=== PATIENT | male | born 1980 | race Caucasian/White ===

== ENCOUNTER 2017-04-07 16:19 | Emergency (ER) | payer BC ==
[2017-04-07] MEDS ORDERED: Lidocaine 2% Viscous Solution 15 ML Cup PO ONE (17:27)
[2017-04-07] MEDS ORDERED: cefTRIAXone 1 GM, Lidocaine 1% 2.1 ML IM ONE ×2 (17:27)
--- NOTE | 2017-04-07 18:17 | EDM.PDOC ---
Scribed by Chela Kimbrough 04/07/17 9595 for Donovan Herrera MD ED HPI GENERAL MEDICAL PROBLEM - General Chief Complaint: ENT Problem Stated Complaint: UNABLE TO SWALLOW, [id number] Time Seen by Provider: 04/07/17 16:40 Source of Information: Reports: Patient, RN, RN Notes Reviewed History Limitations: Reports: No Limitations - History of Present Illness INITIAL COMMENTS - FREE TEXT/NARRATIVE: Patient presents to ER with complaint of sore throat with fever and chills for 2 days. Admits to mild frontal headache and nausea. Denies cough, vomiting or rash. Location: Reports: Other (throat) Quality: Reports: Ache Severity: Severe Improves with: Reports: None Worsens with: Reports: None Associated Symptoms: Reports: No Other Symptoms Throat Pain Score (Numeric/FACES): 10 - Related Data Allergies Allergy/AdvReac Type Severity Reaction Status Date / Time No Known Allergies Allergy Verified 04/07/17 16:46 Home Meds: Home Meds . [No Known Home Meds] 04/07/17 [History] ED ROS ENT - Review of Systems Review Of Systems: ROS reveals no pertinent complaints other than HPI. ED EXAM, ENT - Physical Exam Exam: See Below Exam Limited By: No Limitations General Appearance: Alert, WD/WN, No Apparent Distress Eye Exam: Bilateral Eye: Normal Inspection Ears: Normal External Exam, Normal Canal, Hearing Grossly Normal, Normal TMs Nose: Normal Inspection, Normal Mucousa, No Blood Mouth/Throat: Other (pharyngeal erythema with tonsillar swelling and exudates.) Head: Atraumatic, Normocephalic Neck: Other (cervical lymphadenopathy with tenderness. Full range of motion. Nu nuchal rigidity.) Respiratory/Chest: No Respiratory Distress (with no murmurs), Lungs Clear, Normal Breath Sounds, No Accessory Muscle Use, Chest Non-Tender Cardiovascular: Regular Rate, Rhythm GI/Abdominal: Normal Bowel Sounds, Soft, Non-Tender, No Organomegaly, No Distention, No Abnormal Bruit, No Mass (Male) Exam: Deferred Rectal (Males) Exam: Deferred Back: Normal Inspection, Full Range of Motion Extremities: Normal Inspection, Normal Range of Motion, Non-Tender, No Pedal Edema, Normal Capillary Refill Neurological: Alert, Oriented, CN II-XII Intact, Normal Cognition, Normal Gait, Normal Reflexes, No Motor/Sensory Deficits Psychiatric: Normal Affect, Normal Mood Skin: Warm, Dry, Intact, Normal Color, No Rash Course - Vital Signs Last Recorded V/S: Last Vital Signs Temp 38.3 C H 04/07/17 16:35 Pulse 87 04/07/17 16:35 Resp 18 04/07/17 16:35 BP 143/88 H 04/07/17 16:35 Pulse Ox 97 04/07/17 16:35 - Orders/Labs/Meds Orders: Active Orders 24 hr Category Date Time Status CULTURE STREP A CONFIRMATION [RM] Stat Lab 04/07/17 16:52 Results STREP SCRN A RAPID W CULT CONF [RM] Stat Lab 04/07/17 16:52 Results Labs: Rapid strep: Negative. Meds: Medications Discontinued Medications Generic Name Dose Route Start Last Admin Trade Name Alana PRN Reason Stop Dose Admin Ceftriaxone Sodium 1 gm/ 0 gm 04/07/17 17:27 04/07/17 17:59 Lidocaine HCl 2.1 ml IM 04/07/17 17:28 1 inj ONETIME ONE Administration Lidocaine HCl 15 ml 04/07/17 17:27 04/07/17 17:59 Xylocaine 2% Viscous PO 04/07/17 17:28 15 ml ONETIME ONE Administration Departure - Departure Time of Disposition: 18:16 Disposition: Home, Self-Care 01 Condition: Good Clinical Impression: Pharyngitis Qualifiers: Pharyngitis/tonsillitis etiology: unspecified etiology Qualified Code(s): J02.9 - Acute pharyngitis, unspecified - Discharge Information Instructions: Pharyngitis, [id number] Forms: ED Department Discharge Additional Instructions: RX:Z-Leonidas 250mg. RX: Prednisone 20mg. RX: Viscous Lidocaine 2%. Frequent salt water gargles until improved. Follow up in clinic if not improving in 2 days. - My Orders Last 24 Hours: My Active Orders 04/07/17 16:52 CULTURE STREP A CONFIRMATION [RM] Stat STREP SCRN A RAPID W CULT CONF [RM] Stat - Assessment/Plan Last 24 Hours: My Active Orders 04/07/17 16:52 CULTURE STREP A CONFIRMATION [RM] Stat STREP SCRN A RAPID W CULT CONF [RM] Stat I have read and agree with the documentation that has been completed regarding this visit. By signing this record, I attest that the documentation was completed in my physical presence and is an accurate record of the encounter.
== END 2017-04-07 18:32 | disposition home or self-care (01) ==
LOC: DL.ED 16:19
DX: J02.9 Acute pharyngitis, unspecified (principal)
CPT/HCPCS: 87081; 87430; 99282; A9270; J0696